=== PATIENT | female | born 2000 | race Caucasian/White ===

== ENCOUNTER 2020-12-03 17:19 | Emergency (ER) | payer OTHER ==
[~2020-12-03] VITALS: Ht 170.2 cm; Wt 59.0 kg
[2020-12-03 20:15] VITALS: BP 123/81
[2020-12-03] MEDS ORDERED: KETOROLAC 60MG/2ML VIAL IM ONE (20:15)
[2020-12-03] MEDS ORDERED: LORAZEPAM 1MG TABLET PO ONE (21:00)
[2020-12-03] MEDS ORDERED: IBUP-2029 MT (21:42)
== END 2020-12-03 21:52 | disposition home or self-care (01) ==
LOC: ER 17:49
DX: S63.250A Unspecified dislocation of right index finger, initial encounter (principal); W21.01XA Struck by football, initial encounter; Y93.61 Activity, american tackle football; Y92.89 Other specified places as the place of occurrence of the external cause; Y99.8 Other external cause status
CPT/HCPCS: 26770; 73140; 96372; 99284; J1885